=== PATIENT | female | born 1935 | race Caucasian/White ===

== ENCOUNTER 2018-01-21 01:31 | Emergency (ER) | payer MEDICARE, BC, OTHER ==
--- NOTE | 2018-01-21 01:53 | ER Document Report ---
ED General - General Chief Complaint: Fall Injury Stated Complaint: FALL/NOSE BLEED Time Seen by Provider: 01/21/18 01:37 Notes: Patient is an 83-year-old female with a past medical history of advanced dementia currently residing in a senior care facility who presents with being found lying in a bathroom. Patient is demented, unable to provide meaningful history, does not know how she is on the ground. She is complaining of dull, throbbing, constant pain to her nose. Nothing improves or worsens that pain. She denies any pain to any other location. The patient is unaware of what medications he takes per EMS reports that she is not on blood thinners. Patient denies any additional areas of pain. The patient does not believe she has had a history of similar events or symptoms in the past. TRAVEL OUTSIDE OF THE [place] IN LAST 30 DAYS: No - Related Data Allergies/Adverse Reactions: No Known Allergies Allergy (Unverified 05/12/11 11:19) Past Medical History - General Information source: Patient, [facility] - Social History Smoking Status: Never Smoker Frequency of alcohol use: None Drug Abuse: None Lives with: [facility] Family History: Other - Immunizations Hx Diphtheria, Pertussis, Tetanus Vaccination: Yes - 2010 Review of Systems - Review of Systems Notes: Constitutional: Negative for fever. Eyes: Negative for visual changes. ENT: Positive for facial injury Cardiovascular: Negative for chest injury. Respiratory: Negative for shortness of breath. Gastrointestinal: Negative for abdominal injury. Genitourinary: Negative for genital injury Musculoskeletal: Negative for back injury. Skin: Positive for laceration/abrasions. Neurological: Negative for head injury. Physical Exam - Vital signs Vitals: BP Pulse Ox 164/96 H 89 L 01/21/18 01:39 01/21/18 01:39 Interpretation: Hypertensive Notes: PHYSICAL EXAMINATION: GENERAL: Well-appearing, no acute distress. HEAD: Atraumatic, normocephalic. EYES: Pupils equal round and reactive to light, extraocular movements intact, sclera anicteric, conjunctiva are normal. ENT: Diffuse swelling of the nasal bridge and clotting in both nostrils. No evidence of a septal hematoma, no oral pharyngeal trauma. No hemotympanum, no Gonzalez's sign, no raccoon eyes. NECK: No midline cervical spine tenderness. Patient able to move their head to 45 bilaterally without any discomfort. LUNGS: Breath sounds clear to auscultation bilaterally and equal. No wheezes rales or rhonchi. HEART: Regular rate and rhythm without murmurs. CHEST WALL: No ecchymosis over the chest wall. ABDOMEN: Soft, nontender, normoactive bowel sounds. No guarding, no rebound. No abdominal bruising EXTREMITIES: Normal range of motion, no pitting or edema. No long bone deformities. BACK: No midline spinal tenderness, step-offs, or deformities. NEUROLOGICAL: Face symmetric. Tongue protrudes midline. Extraocular motions intact. Pupils are 2 mm and equally reactive. Normal speech. 5 out of 5 strength in both the distal and proximal upper and lower extremities bilaterally. Sensation is grossly intact throughout. Finger to nose testing normal. Pronator drift normal. PSYCH: Alert, oriented only to person SKIN: Warm, Dry, normal turgor, no rashes or lesions noted. Course - Re-evaluation Re-evalutation: 01/21/18 01:52 Presentation of a well appearing elderly patient in no acute distress, vitals within normal limits after a mechanical fall. Patient denies a syncopal episode as the cause for today's fall. No focal neurologic deficits on exam, no evidence of basilar skull fracture on exam without evidence of hemotympanum, raccoon eyes, or periauricular hematoma. No papilledema. Patient is not on anticoagulation. GCS is 15. No loss of consciousness. No episodes of vomiting. However, based on patient's age a CT of the head has been obtained which is negative for any acute intracranial bleed. Likewise, patient was unable to be clinically cleared due to age by [place] cervical spine criteria. A CT of the cervical spine was also obtained and likewise is negative for any acute fracture. No indication for further imaging of the cervical spine. Patient has no focal deformities or limited range of motion in any joint space. Chest and abdominal exam are benign without any focal tenderness, shortness of breath, or bruising over the chest or abdominal wall. Patient has no flank tenderness. There is no obvious findings on trauma exam today and therefore no further imaging or evaluation will be obtained at this time. At this time will discharge with return precautions and follow-up recommendations. Verbal discharge instructions given a the bedside and opportunity for questions given. Medication warnings reviewed. Patient is in agreement with this plan and has verbalized understanding of return precautions and the need for primary care follow-up in the next 24-72 hours. - Vital Signs Vital signs: Temp Pulse Resp BP Pulse Ox 18 123/79 92 01/21/18 02:09 01/21/18 02:09 01/21/18 02:09 - Diagnostic Test Radiology reviewed: Image reviewed, Reports reviewed Radiology results interpreted by me: 01/21/18 02:48 CT head: No acute intercranial bleed or mass - EKG Interpretation by Me Additional EKG results interpreted by me: 01/21/18 02:48 Sinus rhythm. Rate 74. No ST elevations or depressions. QTC is 440. Discharge - Discharge Clinical Impression: Nosebleed Fall Qualifiers: Encounter type: initial encounter Qualified Code(s): W19.XXXA - Unspecified fall, initial encounter Facial trauma Qualifiers: Encounter type: initial encounter Qualified Code(s): S09.93XA - Unspecified injury of face, initial encounter Condition: Good Disposition: HOME, SELF-CARE Additional Instructions: You have been seen in the Emergency Department (ED) today following a fall. Your workup today did not reveal any injuries that require you to stay in the hospital. You can expect, though, to be stiff and sore for the next several days. You can take Tylenol 1000 mg every 6 hours as needed for pain. You can apply a hot pack or electric heating pad to the sore areas. You can also use topical "Aspercreme with lidocaine" to sore areas as needed. Please follow up with your primary care doctor as soon as possible regarding today's ED visit and your recent accident. Call your doctor or return to the ED if you develop a sudden or severe headache , confusion, slurred speech, facial droop, weakness or numbness in any arm or leg, extreme fatigue, vomiting more than two times, severe abdominal pain, or other symptoms that concern you. Referrals: SAMANTHA GONZALES MD [Primary Care Provider] - Follow up as needed
--- NOTE | 2018-01-21 02:17 | RADIOLOGY REPORT (SQ) ---
EXAM DESCRIPTION: CT cervical spine without contrast 01/21/2018 1:13 AM CDT CLINICAL HISTORY: 83 years, Female, fall, head/facial trauma COMPARISON: None. TECHNIQUE: Volumetric CT acquisition was performed through the cervical spine. Images in the axial, coronal, and sagittal planes were presented for interpretation. This exam was performed according to our departmental dose-optimization program, which includes automated exposure control, adjustment of the mA and/or kV according to patient size and/or use of iterative reconstruction technique. FINDINGS: There are 7 cervical type vertebral bodies in normal anatomic alignment. There is no evidence of acute fracture or dislocation. There are minor degenerative changes throughout the cervical spine At the C2/C3 level, there is normal disk space height without significant canal or neuroforaminal narrowing. At the C3/C4 level, there is normal disc space height with a small disc osteophyte complex. There is no significant canal or neural foraminal narrowing bilaterally. At the C4/C5 level, there is loss of disc space height with a moderate broad-based disc osteophyte complex. There is moderate neural foraminal narrowing left and severe neuroforaminal narrowing on the right. At the C5/C6 level, there is loss of disc space height with a moderate broad-based disc osteophyte complex. There is severe neuroforaminal narrowing bilaterally. At the C6/C7 level, there is normal disk space height without significant canal or neuroforaminal narrowing. The paravertebral and prevertebral soft tissues are normal. There are no fluid collections or evidence of soft tissue thickening. The musculature and soft tissue structures of the neck are within normal limits. There are no pathologically enlarged lymph nodes. There are vascular calcifications of the right carotid bifurcation. The visualized portions of the brain and skull base are grossly unremarkable. Limited evaluation of the lung apices demonstrate no gross abnormalities. IMPRESSION: 1. No acute fracture or dislocation of the cervical spine. 2. Degenerative changes primarily at the C4/C5 and C5/C6 level.
--- NOTE | 2018-01-21 02:19 | RADIOLOGY REPORT (SQ) ---
EXAM DESCRIPTION: Maxillofacial CT January 21, 2018 CLINICAL HISTORY: 83 years, Female, fall, head/facial trauma COMPARISON: None Available. TECHNIQUE: Volumetric CT acquisition was performed through the facial bones. Images in the axial, coronal, and sagittal plane were presented for interpretation. This exam was performed according to our departmental dose-optimization program, which includes automated exposure control, adjustment of the mA and/or kV according to patient size and/or use of iterative reconstruction technique. FINDINGS: There is no evidence of acute fracture or dislocation of the facial bones. The skull base is incompletely evaluated and otherwise unremarkable. The maxillary sinuses demonstrate minor mucosal thickening bilaterally. The ethmoid air cells demonstrate minor mucosal thickening diffusely. The sphenoid sinuses are clear. The frontal sinuses are clear. The mastoid air cells are clear. The globes remain intact. The soft tissue structures the orbital fossa are normal. There is soft tissue swelling overlying the nose diffusely. There is also minor soft tissue swelling of the frontal scalp. The visualized portions of the brain are grossly unremarkable. IMPRESSION: 1. No acute fracture or dislocation of the facial bones. 2. Soft tissue swelling.
--- NOTE | 2018-01-21 02:21 | RADIOLOGY REPORT (SQ) ---
Clinical History : fall, head/facial trauma , Exam : CT Head without contrast 01/21/2018 1:37 AM CDT Comparisons : none. Technique : Volumetric CT acquisition was performed through the brain. Images in the axial, coronal, and sagittal planes were presented for interpretation. This exam was performed according to our departmental dose-optimization program, which includes automated exposure control, adjustment of the mA and/or kV according to patient size and/or use of iterative reconstruction technique. Radiation dose : [id number] Findings: There is limited evaluation of the patient's facial soft tissue swelling. The rest of the soft tissue structures of the scalp are grossly normal. The globes remain intact.. The visualized portions of the paranasal sinuses and mastoid air-cells are clear. The calvarium remains intact. There is no acute intracranial hemorrhage, midline shift, or mass effect. There is mild generalized brain atrophy. The degree of ventricular dilation is commensurate with the degree of atrophy. There are mild periventricular and subcortical white matter changes throughout the bilateral cerebral hemispheres. . The posterior fossa structures are normal in appearance. There is no CT evidence of acute infarction. Limited evaluation of the vasculature demonstrates no gross abnormalities. There are vascular calcifications in the bilateral vertebral and carotid arteries. Impression: 1. No acute intracranial process. 2. Generalized brain atrophy and small vessel ischemic changes. 3. Facial soft tissue swelling.
[2018-01-21 04:02] VITALS: BP 138/81
--- NOTE | 2018-01-21 09:15 | EKG REPORT ---
SEVERITY:- NORMAL ECG - SINUS RHYTHM : Confirmed by: Sydnee Thakur MD 21-Jan-2018 09:14:44
== END 2018-01-21 04:03 | disposition home health service (06) ==
LOC: ER 01:31
DX: S09.93XA Unspecified injury of face, initial encounter (principal); R04.0 Epistaxis; F03.90 Unspecified dementia, unspecified severity, without behavioral disturbance, psychotic disturbance, mood disturbance, and anxiety; J34.89 Other specified disorders of nose and nasal sinuses; R40.2410 Glasgow coma scale score 13-15, unspecified time; W18.30XA Fall on same level, unspecified, initial encounter; Y92.192 Bathroom in other specified residential institution as the place of occurrence of the external cause
CPT/HCPCS: 70450; 70486; 72125; 93005; 93010; 99285

== ENCOUNTER 2020-07-09 08:39 | Emergency (ER) | payer MEDICARE, OTHER, BC ==
--- NOTE | 2020-07-09 09:14 | ER Document Report ---
ED General - General Chief Complaint: Fall Injury Stated Complaint: FALL INJURY Time Seen by Provider: 07/09/20 08:46 Primary Care Provider: SAMANTHA GONZALES MD [Primary Care Provider] - Follow up as needed TRAVEL OUTSIDE OF THE [place] IN LAST 30 DAYS: No - HPI Notes: Chief complaint: Fall History of present illness: 85-year-old female SNF resident with moderate dementia had a unwitnessed fall this morning at facility with no apparent loss of consciousness. She is at her usual baseline per attendance at facility with they have sent her to the ED requesting evaluation. They state that she may have struck her face on furniture on the floor she went down. Patient is quite pleasantly demented but has no apparent complaints at this time. - Related Data Allergies/Adverse Reactions: No Known Allergies Allergy (Unverified 05/12/11 11:19) Past Medical History - General Information source: Patient, [facility] Records Cannot obtain history due to: Dementia - Social History Smoking Status: Unknown if Ever Smoked Frequency of alcohol use: None Drug Abuse: None Lives with: Residential Family History: Other Renal/ Medical History: Denies: Hx Peritoneal Dialysis - Immunizations Hx Diphtheria, Pertussis, Tetanus Vaccination: Yes - 2010 Review of Systems - Review of Systems -: Yes ROS unobtainable due to patient's medical condition Physical Exam - Vital signs Vitals: Temp Resp BP Pulse Ox 98.8 F 18 147/76 H 97 07/09/20 09:01 07/09/20 09:01 07/09/20 09:01 07/09/20 09:01 - Notes Notes: GENERAL: Elderly female appearing in no acute distress. Patient is smiling and conversant. SKIN: Good turgor no rashes. HEAD: Normocephalic atraumatic. Nursing facility had been concerned about a potential facial injury. I do not see any lacerations or abrasions. I palpated bony structure of the facial area on both sides very carefully and do not appreciate any crepitus or step-off. EYES: PERRLA. EOMI. Conjunctivae and sclerae clear. EARS: CANALS AND TMS CLEAR. NOSE: CLEAR. No bleeding. No septal hematoma. No crepitus. MOUTH: Moist mucosa. Good dentition. No stridor or edema. No drooling. NECK: Supple. No masses or thyromegaly. No adenopathy. Carotids 2+ without bruits. No JVD. BACK: Symmetrical without tenderness. CHEST: Respirations unlabored. Breath sounds clear and symmetrical. HEART: Regular rhythm. No murmur gallop or rub. ABDOMEN: Soft nontender without masses, organomegaly or rebound. Bowel sounds normally active. No bruits. GENITALIA: Deferred. EXTREMITIES: No tenderness on compression over the pelvis. No edema. No calf tenderness. Cap refill less than 1.5 seconds. Dorsalis pedis and posterior tibial pulses 3+ and symmetrical. NEUROLOGICAL: GCS 14. Alert and oriented x3. Fluent speech. Cranial nerves II through XII intact. Sensorimotor and cerebellar normal. Normal tone. PSYCHIATRIC: Confabulating oriented to person only which is her usual baseline per caretakers. Course - Re-evaluation Re-evalutation: 07/09/20 11:32 This is a pleasantly demented 85-year-old female SNF resident sent in for evaluation for an unwitnessed fall with no apparent loss of consciousness. She is at her usual baseline. Her exam here was remarkable only for confabulation and disorientation again felt to be consistent with her usual baseline. We obtained imaging including noncontrast head CT, noncontrast C-spine CT and plain films of the pelvis all of which were unremarkable per radiologist. Patient is felt to be very stable for return to SNF with fall precautions and this has been communicated to the staff by her bedside nurse prior to discharge. - Vital Signs Vital signs: Temp Pulse Resp BP Pulse Ox 98.8 F 18 147/76 H 97 07/09/20 09:01 07/09/20 09:01 07/09/20 09:01 07/09/20 09:01 - Laboratory Results Critical Laboratory Results Reviewed: No Critical Results - Radiology Results Radiology Results Interpreted: 07/09/20 11:[address] 07/09/20 09:06 IMPRESSION: CHRONIC CHANGES OF ATROPHY AND MICROVASCULAR ISCHEMIA. NO ACUTE PROCESS. EVIDENCE OF ACUTE STROKE: NO. Cervical Spine CT 07/09/20 09:07 IMPRESSION: CHRONIC DEGENERATIVE CHANGES. NO ACUTE FINDINGS. Pelvis X-Ray 07/09/20 09:09 IMPRESSION: No radiographic evidence of acute fracture or dislocation. Moderate osteoarthritis bilateral femoroacetabular joints. Critical Radiology Results Reviewed: No Critical Results Discharge - Discharge Clinical Impression: Accidental fall Dementia Qualifiers: Dementia type: unspecified type Dementia behavioral disturbance: without behavioral disturbance Qualified Code(s): F03.90 - Unspecified dementia without behavioral disturbance Condition: Stable Disposition: HOME-SNF (ED ONLY) Additional Instructions: Fall precautions. Tylenol as needed. Ice packs as needed. Return to the emergency department as needed for new or worsening symptoms. Follow-up with primary care physician within the next 1 week. Referrals: SAMANTHA GONZALES MD [Primary Care Provider] - Follow up as needed
--- NOTE | 2020-07-09 09:38 | RADIOLOGY REPORT (SQ) ---
EXAM DESCRIPTION: CT HEAD WITHOUT IMAGES COMPLETED DATE/TIME: 07/09/2020 9:26 am REASON FOR STUDY: trauma COMPARISON: 01/21/2018 TECHNIQUE: Axial images acquired through the brain without intravenous contrast. Images reviewed wi th bone, brain and subdural windows. Additional sagittal and coronal reconstructions were generated. Images stored on PACS. All CT scanners at this facility use dose modulation, iterative reconstruction, and/or weight based d osing when appropriate to reduce radiation dose to as low as reasonably achievable (ALARA). [facility]: Dose Right [facility]: CareDose [facility]: Dose Right [facility]: Teradose 4D [facility]: [employer] RADIATION DOSE: CT Rad equipment meets quality standard of care and radiation dose reduction techniq ues were employed. CTDIvol: 53.2 mGy. DLP: 1044 mGy-cm.mGy. LIMITATIONS: None. FINDINGS: VENTRICLES: Prominent. CEREBRUM: No masses. No hemorrhage. No midline shift. Areas of low density in the white matter mos t likely due to chronic micro-vascular ischemic change. No evidence for acute infarction. CEREBELLUM: No masses. No hemorrhage. No alteration of density. No evidence for acute infarction. EXTRAAXIAL SPACES: Age-related involutional change. No fluid collections. No masses. ORBITS AND GLOBE: No intra- or extraconal masses. Normal contour of globe without masses. CALVARIUM: No fracture. PARANASAL SINUSES: No fluid or mucosal thickening. SOFT TISSUES: No mass or hematoma. OTHER: No other significant finding. IMPRESSION: CHRONIC CHANGES OF ATROPHY AND MICROVASCULAR ISCHEMIA. NO ACUTE PROCESS. EVIDENCE OF ACUTE STROKE: NO. TECHNICAL DOCUMENTATION: JOB ID: [id number] Quality ID # [id number]: Final reports with documentation of one or more dose reduction techniques (e.g., Au tomated exposure control, adjustment of the mA and/or kV according to patient size, use of iterative reconstruction technique) 2010 [employer]- All Rights Reserved Reading location - IP/workstation name: [email or web address]
--- NOTE | 2020-07-09 09:40 | RADIOLOGY REPORT (SQ) ---
EXAM DESCRIPTION: CT CERVICAL SPINE WITHOUT IMAGES COMPLETED DATE/TIME: 07/09/2020 9:26 am REASON FOR STUDY: trauma COMPARISON: 01/21/2018 TECHNIQUE: Axial images acquired through the cervical spine without intravenous contrast. Images re viewed with lung, soft tissue and bone windows. Reconstructed coronal and sagittal MPR images review ed. Images stored on PACS. All CT scanners at this facility use dose modulation, iterative reconstruction, and/or weight based d osing when appropriate to reduce radiation dose to as low as reasonably achievable (ALARA). [facility]: Dose Right [facility]: CareDose [facility]: Dose Right [facility]: Teradose 4D [facility]: [employer] RADIATION DOSE: CT Rad equipment meets quality standard of care and radiation dose reduction techniq ues were employed. CTDIvol: 10.6 mGy. DLP: 235 mGy-cm. mGy. LIMITATIONS: None. FINDINGS: ALIGNMENT: Relative straightening of the normal lordotic curvature on the basis of spondyl otic change. MINERALIZATION: Normal. VERTEBRAL BODIES: No fractures or dislocation. DISCS: Multilevel disc space narrowing with osteophytes. FACETS, LATERAL MASSES, POSTERIOR ELEMENTS: Facet arthropathy. No fractures. No dislocation. No ac [place] findings. HARDWARE: None in the spine. VISUALIZED RIBS: No fractures. LUNG APICES AND SOFT TISSUES: No significant or acute findings. OTHER: No other significant finding. IMPRESSION: CHRONIC DEGENERATIVE CHANGES. NO ACUTE FINDINGS. TECHNICAL DOCUMENTATION: JOB ID: [id number] Quality ID # [id number]: Final reports with documentation of one or more dose reduction techniques (e.g., Au tomated exposure control, adjustment of the mA and/or kV according to patient size, use of iterative reconstruction technique) 2010 [employer]- All Rights Reserved Reading location - IP/workstation name: [email or web address]
--- NOTE | 2020-07-09 09:48 | RADIOLOGY REPORT (SQ) ---
EXAM DESCRIPTION: PELVIS AP IMAGES COMPLETED DATE/TIME: 07/09/2020 8:29 am REASON FOR STUDY: fall. COMPARISON: None. NUMBER OF VIEWS: One view TECHNIQUE: AP Pelvis LIMITATIONS: None. FINDINGS: MINERALIZATION: Normal. HIPS: No acute fracture or dislocation. No worrisome bone lesions. Moderate osteoarthritis at the fe moroacetabular joints bilaterally. PELVIS AND SACRUM: No acute fracture or dislocation. No worrisome bone lesions. PUBIS AND ISCHIUM: No acute fracture. LOWER LUMBAR SPINE: No significant findings as visualized. SOFT TISSUES: No findings. OTHER: No other significant finding. IMPRESSION: No radiographic evidence of acute fracture or dislocation. Moderate osteoarthritis bila teral femoroacetabular joints. COMMENT: Pelvic fractures are often occult on plain radiographs. If strong clinical suspicion for f racture, recommend CT or MR. TECHNICAL DOCUMENTATION: JOB ID: [id number] 2010 [employer]- All Rights Reserved Reading location - IP/workstation name: [email or web address]
[2020-07-09 11:35] VITALS: BP 123/92
== END 2020-07-09 12:45 ==
LOC: ER 08:39
DX: Z04.3 Encounter for examination and observation following other accident (principal); M16.0 Bilateral primary osteoarthritis of hip; M47.812 Spondylosis without myelopathy or radiculopathy, cervical region; F03.90 Unspecified dementia, unspecified severity, without behavioral disturbance, psychotic disturbance, mood disturbance, and anxiety
CPT/HCPCS: 70450; 72125; 72170; 99284